=== PATIENT | male | born 1990 | race Caucasian/White ===

== ENCOUNTER 2018-04-30 07:20 | Emergency (ER) | payer OTHER ==
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
--- NOTE | 2018-04-30 09:12 | XR ---
EXAMINATION TYPE: XR ankle complete RT , 3 VIEWS DATE OF EXAM ORDERED: 04/30/2018 HISTORY: Pain. COMPARISON: None. FINDINGS: There is bone fragment seen posterior to the tibia likely representing a posterior malleol us fracture. This is minimally displaced. No additional fracture is seen. No definite joint effusion is seen. IMPRESSION: MILDLY DISPLACED POSTERIOR MALLEOLUS FRACTURE. CODE A: INITIAL ENCOUNTER FOR CLOSED FRACTURE.
--- NOTE | 2018-04-30 09:15 | XR ---
EXAMINATION TYPE: XR tibia fibula RT , 2 VIEWS DATE OF EXAM ORDERED: 04/30/2018 HISTORY: Pain. COMPARISON: None. FINDINGS: There is a Maisonneuve fracture involving the proximal fibula which is mildly displaced an d spiral in nature. This is associated with a fracture of the posterior malleolus. This is also mildl y displaced. IMPRESSION: MAISONNEUVE FRACTURE OF THE RIGHT TIBIA AND FIBULA. CODE: INITIAL ENCOUNTER FOR CLOSED FRACTURE.
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
[2018-04-30] MEDS ORDERED: KETOROLAC 60 MG/2 ML VIAL IM STA (10:20)
[2018-04-30 11:54] VITALS: BP 130/71; PULSE 99; RESP 16; TEMP 98
== END 2018-04-30 12:00 | disposition home or self-care (01) ==
LOC: EC 07:20
DX: S82.831A Other fracture of upper and lower end of right fibula, initial encounter for closed fracture (principal); S82.301A Unspecified fracture of lower end of right tibia, initial encounter for closed fracture; H73.92 Unspecified disorder of tympanic membrane, left ear; Y04.0XXA Assault by unarmed brawl or fight, initial encounter; Y92.89 Other specified places as the place of occurrence of the external cause
CPT/HCPCS: 73590; 73610; 70450; 99284; 29505; 96372; J1885

== ENCOUNTER → 2018-05-09 | Outpatient (CLI) | payer OTHER ==
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
== END | disposition home or self-care (01) ==
LOC: RADCTMAIN 15:32
PROVIDERS: ATTEND Orthopaedic Surgery
DX: S82.434D Nondisplaced oblique fracture of shaft of right fibula, subsequent encounter for closed fracture with routine healing (principal); S82.301D Unspecified fracture of lower end of right tibia, subsequent encounter for closed fracture with routine healing

== ENCOUNTER 2018-05-16 12:50 | Day surgery (SDC) | payer OTHER ==
[~2018-05-16 12:50] MED LIST: ACETAMINOPHEN TAB 500 MG TAB PO ONE; DEXAMETHASONE SOD PHOSPHATE 10 MG/ML 1 ML VIAL IV ONE; HYDROmorphone 0.5 MG/0.5 ML SYRINGE IVP PRN; LACTATED RINGERS 1,000 ML IV SCH; ONDANSETRON 4 MG/2 ML VIAL IVP ONE; Pre Op ABX Message 1 EACH MISC MISCELLANE ONE
[2018-05-16] MEDS ORDERED: ceFAZolin IN SWFI 2 GM/20 ML SYRINGE IVP ONE (14:30)
[2018-05-16] MEDS ORDERED: PROPOFOL 10 MG/ML 20 ML VIAL IV ONE (15:49)
[2018-05-16] MEDS ORDERED: LIDOCAINE 1% INJ 10MG/ML (20 ML MDV) ONE (15:49)
[2018-05-16] MEDS ORDERED: fentaNYL (PF) 50 MCG/ML 2 ML AMP ONE (15:49)
[2018-05-16] MEDS ORDERED: MIDAZOLAM 2 MG/2 ML VIAL ONE (15:49)
[2018-05-16] MEDS ORDERED: MEPERIDINE 50 MG/ML SYRINGE ONE (15:49)
[2018-05-16] MEDS ORDERED: LACTATED RINGERS 1,000 ML IV ONE (16:06)
[2018-05-16] MEDS: fentaNYL (PF) 50 MCG/ML 2 ML AMP IVP ONE ×2 (17:18→17:23)
[2018-05-16 17:21] VITALS: TEMP 97
--- NOTE | 2018-05-16 17:33 | XR ---
Limited right ankle HISTORY: Open reduction internal fixation 3 intraoperative C-arm images document the procedure.
[2018-05-16] MEDS ORDERED: ROPIVACAINE 5 MG/ML 30 ML VIAL MISCELLANE ONE (17:38)
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
--- NOTE | 2018-05-16 17:48 | FL ---
Fluoroscopy HISTORY: Open reduction internal fixation right ankle 56 seconds fluoroscopy time supplied to the referring clinician. 3 intraoperative C-arm images docum ent the procedure. See dictated report from orthopedic surgery.
--- NOTE | 2018-05-16 17:48 | P.ONQ ---
Anesthesiology Proc Note - PNB - Peripheral Nerve Block Performed Right Popliteal Single Time Out Performed: Yes (8912) Procedure Start Time: 17:25 Procedure Stop Time: 17:32 Indication: Acute Post-Operative Pain, Dx/Pain Location (Right Ankle Pain), Requested by physician Sedation Type: Sedate with meaningful contact maintained Preparation: Sterile Prep Position: Supine Needle Types: On-Q Needle Size: 50mm (2") Needle Gauge: 21 Technique: Ultrasound Injectate: Other (see comment) (15ml 0.5% Ropivacaine + 15ml 2% lidocaine with epi 1:200,000) Blood Aspirated: No Pain Paresthesia on Injection Noted: No Resistance on Injection: Normal Events: Uneventful and Well Tolerated
[2018-05-16 18:05] VITALS: RESP 18
[2018-05-16 18:31] VITALS: BP 145/89; PULSE 78
== END 2018-05-16 18:45 | disposition home or self-care (01) ==
LOC: OR 12:50
PROVIDERS: ATTEND Family Medicine
DX: S82.861A Displaced Maisonneuve's fracture of right leg, initial encounter for closed fracture (principal); Y09 Assault by unspecified means; F32.9 Major depressive disorder, single episode, unspecified; H92.09 Otalgia, unspecified ear; F41.9 Anxiety disorder, unspecified; Z79.2 Long term (current) use of antibiotics; Z79.1 Long term (current) use of non-steroidal anti-inflammatories (NSAID); Z79.899 Other long term (current) drug therapy
CPT/HCPCS: 73600; 27829; C1713 ×2; J2250; J1100; J2175; J2405; J2001; J3010; J2795; J2704; J1170; J0690

== ENCOUNTER → 2018-10-27 | Outpatient (CLI) | payer OTHER ==
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
== END | disposition home or self-care (01) ==
LOC: SLEEP 14:59
PROVIDERS: ATTEND Internal Medicine
DX: G47.33 Obstructive sleep apnea (adult) (pediatric) (principal); E66.9 Obesity, unspecified; F31.9 Bipolar disorder, unspecified; F41.9 Anxiety disorder, unspecified; Z68.35 Body mass index [BMI] 35.0-35.9, adult; Z87.81 Personal history of (healed) traumatic fracture; Z79.899 Other long term (current) drug therapy
CPT/HCPCS: 99211